=== PATIENT | female | born 1955 | race African-American/Black ===

== ENCOUNTER 2023-11-26 12:21 | Emergency (ER) | payer OTHER ==
[~2023-11-26] VITALS: Ht 165.1 cm; Wt 59.0 kg
[2023-11-26 12:26] VITALS: O2SAT 100
[2023-11-26] MEDS ORDERED: metformin (12:26)
[2023-11-26] MEDS ORDERED: atorvastatin (12:26)
[2023-11-26 13:15] LABS: BASOPHILS % 0.7 % (0.0-2.0); EOSINOPHILS % 12.1 % (0.0-5.0); HEMATOCRIT. 36.4 % (36.0-48.0); HEMOGLOBIN. 11.9 g/dL (12.0-16.0); LYMPHOCYTES % 25.2 % (20.0-50.0); MEAN CORPUSCULAR HGB CONC 32.7 g/dL (31.0-37.0); MEAN CORPUSCULAR VOLUME 82.6 fL (81.0-99.0); MEAN PLATELET VOLUME 8.1 fl (7.4-10.4); MONOCYTES % 6.5 % (2.0-8.0); NEUTROPHILS % 55.5 % (40.0-76.0); PLATELET 377 x1000/uL (130-400); RED CELL DISTRIBUTION WIDTH 16.4 % (11.6-14.6); WHITE BLOOD COUNT 11.2 x1000/uL (4.5-11.0)
[2023-11-26 13:18] LABS: CHLORIDE 108 mEq/L (98-107); POTASSIUM 2.9 mEq/L (3.5-5.1); SODIUM 142 mEq/L (136-145)
[2023-11-26 13:19] LABS: CARBON DIOXIDE 26 mEq/L (21-32)
[2023-11-26 13:20] LABS: CALCIUM 9.9 mg/dL (8.7-10.4)
[2023-11-26 13:24] LABS: CREATININE 0.9 mg/dL (0.6-1.0); GLUCOSE 145 mg/dL (70-105)
[2023-11-26 13:25] LABS: UREA NITROGEN BLOOD 16 mg/dL (9-23)
[2023-11-26] MEDS: METOCLOPRAMIDE HCL 10MG/2ML VIAL IV ONE (13:25)
[2023-11-26 13:26] LABS: ALANINE AMINOTRANSFERASE 19 IU/L (10-49); ALBUMIN 4.3 g/dL (3.2-4.8); ASPARTATE AMINOTRANSFERASE 26 IU/L (<34)
[2023-11-26] MEDS: MORPHINE SULFATE 2 MG/ML INJ (NOT FOR IM USE) IV ONE (13:26)
[2023-11-26] MEDS: LABETALOL 5MG/ML 4ML INJ IV ONE (13:26)
[2023-11-26 13:27] LABS: BILIRUBIN DIRECT 0.2 mg/dL (<=3.0); BILIRUBIN TOTAL 0.7 mg/dL (0.1-1.0); PROTEIN TOTAL 6.8 g/dL (6.0-8.3)
[2023-11-26] MEDS: SODIUM CHLORIDE 0.9% 1,000 ML IV ONE (13:27)
[2023-11-26] MEDS ORDERED: IOHEXOL-350 100 ML BOTTLE ONE (14:38)
[2023-11-26] MEDS: NICARDIPINE 40MG/200ML PREMIX 200 ML IV PRN (15:15)
[2023-11-26] MEDS: MORPHINE SULFATE 4 MG/ML INJ (FOR IV/IM USE) IV ONE (15:41)
[2023-11-26] MEDS: ONDANSETRON HCL 4MG/2ML INJ IV ONE (15:45)
[2023-11-26] MEDS: KCL 20MEQ/100ML PREMIX 100 ML IV SCH (16:49)
[2023-11-26 17:03] VITALS: PULSE 108; RESP 22; TEMP 35.50284; O2SAT 100
[2023-11-26 17:17] VITALS: BP 150/70
== END 2023-11-26 17:40 | disposition short-term general hospital (02) ==
LOC: ER 12:21 → CANBEDREQ 15:14 → ER 17:40
DX: I62.9 Nontraumatic intracranial hemorrhage, unspecified (principal); I67.1 Cerebral aneurysm, nonruptured; I10 Essential (primary) hypertension; E87.6 Hypokalemia; I48.91 Unspecified atrial fibrillation; E11.9 Type 2 diabetes mellitus without complications; Z88.8 Allergy status to other drugs, medicaments and biological substances
CPT/HCPCS: 99291; 70496; 96365; 96375; 96367; 96361; 80076; 80048; 83690; 85025; 36415; 70498; 99292; 70450; 96376; Q9967; J3490; J2765; J2405; J3480; J2270 ×2; J7030